=== PATIENT | female | born 1955 | race Caucasian/White ===

== ENCOUNTER 2020-04-10 19:54 | Emergency (ER) | payer MEDICARE, OTHER, SELFPAY ==
--- NOTE | ~2020-04-10 | XR_ITS ---
EXAMINATION: XR abdomen/kub 1V DATE: 04/10/2020 22:00 INDICATION: Kidney stones. Left-sided flank pain. TECHNIQUE: A supine view of the abdomen was obtained. COMPARISON: CT dated 04/10/2020 FINDINGS: Catheter projecting over the left abdomen, pelvis and lower chest likely representing a ventriculoper itoneal shunt. Excreted contrast at the bilateral renal collecting systems with mild left left hydrou reteronephrosis and delayed left nephrogram consistent with obstructing stone at the left ureterovesi cular junction as seen on prior CT. The stone appears to be subtly visible on the plain radiographs b ut is obscured by distal excreted contrast in the bladder as well as some mottled stool within the si gmoid colon. No dilated loops of bowel to suggest obstruction. IMPRESSION: 1. Obstructing stone at the left ureterovesicular junction with mild left hydroureteronephrosis and d elayed left nephrogram. Reviewed, dictated and finalized at location A. IMPRESSION: 1. Obstructing stone at the left ureterovesicular junction with mild left hydro ureteronephrosis and delayed left nephrogram.
--- NOTE | ~2020-04-10 | CT_ITS ---
EXAMINATION: CT abdomen pelvis w con DATE: 04/10/2020 21:14 INDICATION: Left abdominal pain TECHNIQUE: Computed tomography (CT) of the abdomen and pelvis was performed with 100 cc Omnipaque 350 intravenous contrast. Automated exposure control and iterative reconstruction technique were employe d. Exam dose: 171.07 mGy-cm total exam DLP. COMPARISON: 09/21/2014 CT abdomen pelvis FINDINGS: The lung bases are clear. Small sliding hiatal hernia. Normal heart size. No pericardial or pleural effusion. The liver, spleen, pancreas, gallbladder, bile ducts and pancreatic duct are unremarkable. Morphology of the adrenal glands. Distal left ureteral 4 mm calculus with mild left hydroureteronephrosis. There are 2 small nonobstruc ting left renal calculi. No right urinary tract calculus or hydroureteronephrosis. Small lower pole r ight renal cyst. Atherosclerotic calcification of the abdominal aorta, iliac and femoral arteries; no abdominal aortic aneurysm or dissection is evident. No intraperitoneal or retroperitoneal or pelvic mass lesion or ad enopathy or ascites. The urinary bladder, uterus and adnexal areas are unremarkable. There is a prominent amount of fecal with material within the colon. There is some liquid stool in th e right colon. There are fluid distended but nondilated small bowel segments with occasional small nazario wel air-fluid levels. No bowel wall thickening, pneumatosis or intraperitoneal free air. Findings sug gest mild adynamic ileus. No suspicious osteolytic or osteoblastic lesions are noted. IMPRESSION: 4 mm distal left ureteral calculus with mild left hydroureteronephrosis 2 small nonobstructing left kidney stones Small right renal cyst Reviewed, dictated and finalized at [facility]. Reviewed, dictated and finalized at location A. IMPRESSION: 4 mm distal left ureteral calculus with mild left hydroureteroneph rosis 2 small nonobstructing left kidney stones Small right renal cyst
[2020-04-10 20:04] VITALS: BP 159/67; PULSE 69; RESP 18; TEMP 36.7; O2SAT 99
--- NOTE | 2020-04-10 20:10 | ED.ABDPAIN ---
HPI - Abdominal Pain General Chief Complaint: Abdominal Pain Stated Complaint: left flank pain Time Seen by Provider: 04/10/20 19:56 Source: RN notes reviewed History of Present Illness HPI narrative: Patient presents emergency department from home for left-sided abdominal pain. Patient states pain began yesterday. The pain is located in the left lower abdomen and radiates in the left flank. Described as sharp and stabbing. States associated nausea vomiting yesterday but none today. Denies any fevers or chills chest pain, shortness of breath, diarrhea, dysuria or any other symptoms. States she is taken no previous pain medication today. Denies anything making the pain better or worse Related Data Home Medications Medication Instructions Recorded Confirmed atorvastatin 10 mg tablet 10 mg PO DAILY 02/13/20 clonazepam 0.5 mg disintegrating 0.5 mg PO DAILY 02/13/20 tablet lacosamide 200 mg tablet 200 mg PO Q12H 02/13/20 levothyroxine 25 mcg tablet 25 mcg PO DAILY 02/13/20 modafinil 200 mg tablet 200 mg PO QAM 02/13/20 omeprazole 40 mg capsule,delayed 40 mg PO DAILY 02/13/20 release zonisamide 100 mg capsule 100 mg PO BID 02/13/20 Allergies Allergy/AdvReac Type Severity Reaction Status Date / Time No Known Allergies Allergy Unknown Verified 04/10/20 20:09 Review of Systems Review of Systems: Narrative: Gen.: Denies fevers or chills ENT: Denies congestion Respiratory: Denies shortness of breath or cough CV: Denies chest pain or palpitations GI: See HPI denies burning, urgency, frequency or hematuria Musculoskeletal: Denies back pain or muscle pain Neuro: Denies numbness, tingling, weakness or focal weakness Skin: Denies rash Except as documented, all other systems reviewed and negative PMFSH Past Medical History Medical History Acid reflux Brain aneurysm Depression Hyperlipidemia Hypothyroidism Family History Family History (Updated 05/05/16 @ 23:21 by DOCTOR UNKNOWN) Father Patient's father is in good health Sibling Patient's brother is in good health Other Family history of heart disease in male family member before age 55 Social History Social History Smoking status: Current every day smoker Second hand tobacco smoke exposure: No Alcohol intake: never Exam Narrative: Exam Narrative: APPEARANCE: No acute distress, nontoxic, resting in bed HEENT: Normocephalic, atraumatic, OMM RESPIRATORY: No respiratory distress, clear to auscultation bilaterally with no rhonchi wheezing or rales CARDIOVASCULAR: RRR s murmur ABDOMINAL: Soft, nondistended, tender palpation left upper quadrant left lower quadrant, no tenderness in right upper quadrant right lower quadrant, no rebound or guarding MUSCULOSKELETAl: Moves all extremities. No clubbing, cyanosis or edema. NEURO: Awake and alert. Following commands, speech normal, no focal deficits SKIN:: Warm, dry. Normal Color PSYCHIATRIC: Normal affect/mood Course Course Emergency Course: Patient states she is feeling better at this time Discussed with patient results of workup and diagnosis. Discussed need for follow-up with primary care, proper use of medication, and reasons to return to the emergency department. Patient understands and agrees to current treatment plan Vital Signs Vital signs: Vital Signs Temperature 98.1 F 04/10/20 20:04 Pulse Rate 69 04/10/20 20:04 Respiratory Rate 18 04/10/20 20:04 Blood Pressure 159/67 H 04/10/20 20:04 Pulse Oximetry 99 04/10/20 20:04 Temperature 98.1 F 04/10/20 20:04 Pulse Rate 74 04/10/20 21:37 Respiratory Rate 18 04/10/20 21:37 Blood Pressure 155/74 H 04/10/20 21:37 Pulse Oximetry 99 04/10/20 21:37 MDM - Abdominal Pain MDM Narrative Medical decision making narrative: Patient's abdomen is soft without significant pain or signs of surgical abdome
[2020-04-10 20:27] LABS: Basophils Percent Auto 0.3 % (0.2-1.2); Eosinophils Absolute Auto 0.1 K/mm3 (0-0.3); Eosinophils Percent Auto 1.1 % (0-4.4); Hematocrit 39.5 % (37.0-47.0); Hemoglobin 12.9 g/dL (12.0-15.0); Immature Granulocyte Absolute 0.03 K/mm3 (0.00-0.031); Immature Granulocyte Percent A 0.3 % (0-0.5); Lymphocytes Absolute Auto 1.65 K/mm3 (0.9-3.2); Mean Corpuscular HGB Conc 32.7 g/dl (32-36); Mean Corpuscular Hemoglobin 31.2 pg (26-34); Mean Corpuscular Volume 95.4 fl (80-100); Mean Platelet Volume 10.9 fl (7.4-10.4); Monocytes Absolute Auto 0.7 K/mm3 (0.1-0.6); Monocytes Percent Auto 6.1 % (2.6-8.5); Neutrophils Absolute Auto 8.5 K/mm3 (1.3-6.7); Neutrophils Percent Auto 77.2 % (45.5-73.1); Platelet Count Result 261 k/mm3 (150-375); Red Blood Count 4.14 M/mm3 (4.2-5.4); Red Cell Distribution Width 14.6 % (11.5-14.5)
[2020-04-10] MEDS: SODIUM CHLORIDE 0.9% IV 1,000 ML 999 ML IV CONT (20:27)
[2020-04-10 20:29] LABS: Add Urine Microscopic? NO; Appearance Urine Clear (Clear); Bilirubin Urine Negative (Negative); Blood Urine Negative (Negative); Color Urine Yellow (Yellow); Glucose Urine UA Negative (Negative); Ketones Urine Negative (Negative); Leukocyte Esterase Ur Negative LEU/UL (Negative); Nitrate Urine Negative (Negative); Protein Urine Negative (Negative); Specific Grav Ur 1.016 (1.001-1.035); Urobilinogen Urine Negative mg/dL (<2.0)
[2020-04-10 20:36] LABS: INR 0.9; Prothrombin Time 12.2 Seconds (11.1-14.7)
[2020-04-10 20:37] LABS: Partial Thromboplastin Time 35.3 SECONDS (22.3-36.8)
[2020-04-10 20:39] LABS: Alanine Aminotransferase 13 U/L (4-35); Albumin Level 4.4 g/dL (3.5-5.1); Alkaline Phosphatase 97 U/L (38-126); Aspartate Amino Transferase 25 U/L (14-36); Bilirubin,Total 0.3 mg/dL (0.2-1.3); Blood Urea Nitrogen 16 mg/dL (7-17); Calcium 8.6 mg/dL (8.4-10.2); Carbon Dioxide 24 mmol/L (22-30); Chloride 106 mmol/L (98-107); Estimated CRCL calculation 30 ml/min; Estimated Glomerular Filt Rate 45; Glucose 110 mg/dL (65-105); Lipase 100 U/L (23-300); Potassium 3.5 mmol/L (3.4-5.0); Sodium 138 mmol/L (137-145)
[2020-04-10 21:37] VITALS: BP 155/74; PULSE 74; RESP 18; O2SAT 99
[2020-04-10] MEDS: TAMSULOSIN HCL 0.4 MG CAPSULE PO (21:52)
--- NOTE | 2020-04-10 21:53 | PC.NURSE ---
xray in room at this time.
== END 2020-04-10 22:30 | disposition home or self-care (01) ==
PROVIDERS: Emergency Provider Emergency Medicine; PCP Nurse Practitioner Family
DX: N13.2 Hydronephrosis with renal and ureteral calculous obstruction (principal); K21.9 Gastro-esophageal reflux disease without esophagitis; E78.5 Hyperlipidemia, unspecified; E03.9 Hypothyroidism, unspecified; F17.200 Nicotine dependence, unspecified, uncomplicated; N28.1 Cyst of kidney, acquired
CPT/HCPCS: 36415; 74018; 74177; 80053; 81003; 83690; 85025; 85610; 85730; 96361; 96374; 99284; A9270; J0131; J7030; Q9967

== ENCOUNTER 2020-04-13 10:05 | Outpatient (CLI) | payer MEDICARE, OTHER, SELFPAY ==
--- NOTE | ~2020-04-13 | MM_ITS ---
EXAMINATION: MM screening [facility] BI w [facility] HISTORY: Screening mammogram TECHNIQUE: Craniocaudal and mediolateral oblique 3-D tomosynthesis images were obtained and synthetic 2-D images were generated. CAD analysis was submitted and interpreted. COMPARISON: 03/20/2019, 03/16/2017, 03/01/2017, 02/08/2016 BREAST PARENCHYMAL COMPOSITION: There are scattered areas of fibroglandular density. FINDINGS: There is no evidence of suspicious mass, calcification, or architectural distortion to sugg est malignancy in either breast. There has been no suspicious interval change. IMPRESSION: 1. No mammographic evidence of malignancy. 2. Recommend routine screening mammography in one year. BI-RADS Category 1: Negative Reviewed, dictated and finalized at location A.
== END 2020-04-13 10:06 | disposition home or self-care (01) ==
PROVIDERS: PCP Nurse Practitioner Family; Visit Provider Nurse Practitioner Family
DX: Z12.31 Encounter for screening mammogram for malignant neoplasm of breast (principal)
CPT/HCPCS: 77063; 77067

== ENCOUNTER 2020-04-13 12:42 | Outpatient (CLI) | payer MEDICARE, OTHER, SELFPAY ==
--- NOTE | ~2020-04-13 | XR_ITS ---
EXAMINATION: XR abdomen/kub 1V INDICATION: Left ureteral stone TECHNIQUE: Supine views of the abdomen were obtained on 2 radiographs. COMPARISON: 04/10/2020 FINDINGS: The previously described left pelvic calcification, possibly reflecting a left ureterovesic ular junction stone, is not definitely identified. There are phleboliths of the right pelvis. Ventric uloperitoneal shunt catheter tubing is seen. A large volume of colonic stool is present. IMPRESSION: 1. Previously questioned left ureterovesicular junction stone not definitely identified. Reviewed, dictated and finalized at location A. IMPRESSION: 1. Previously questioned left ureterovesicular junction stone not definitely id entified.
== END 2020-04-13 12:43 | disposition home or self-care (01) ==
PROVIDERS: PCP Nurse Practitioner Family; Visit Provider Urology
DX: N20.1 Calculus of ureter (principal)
CPT/HCPCS: 74018; 77063; 77067

== ENCOUNTER 2020-08-02 14:06 | Outpatient (CLI) | payer MEDICARE, OTHER, SELFPAY ==
--- NOTE | ~2020-08-02 | CT_ITS ---
EXAMINATION: CT abdomen pelvis wo con DATE: 08/02/2020 14:25 INDICATION: Left ureteral stone. Left abdominal pain. Nausea and vomiting. TECHNIQUE: Computed tomography (CT) of the abdomen and pelvis was performed without intravenous contr ast. Automated exposure control and iterative reconstruction technique were employed. Exam dose: 161 .29 mGy-cm total exam DLP. COMPARISON: 04/13/2020 KUB 04/[address] abdomen pelvis FINDINGS: Discoid atelectasis or scarring at the middle lobe. No infiltrate or consolidation or lung bases. 6 There is a catheter along the left anterior abdominal wall extending into the peritoneal cavity, term inating in the right pelvic region. The liver, gallbladder spleen, pancreas and adrenal glands are unremarkable. There are occasional hep atic and splenic calcified granulomas. No bile duct or pancreatic duct dilatation. Normal morphology of the adrenal glands. 3 mm distal left ureteral calculus with moderate left hydroureteronephrosis. There is a pinpoint nonobstructing left renal calculus. No right urinary tract calculus or right-side d hydroureteronephrosis. The urinary bladder, uterus and adnexal areas are unremarkable. There is atherosclerotic calcification of the abdominal aorta but no aneurysm. No intraperitoneal or retroperitoneal or pelvic mass lesion or adenopathy is evident. There is a small amount of free fluid in the dependent pelvis. Small sliding hiatal hernia. There are some fluid levels in the right colon which may indicate enteritis. No bowel obstruction, nazario wel wall thickening, pneumatosis or intraperitoneal free air is evident. No suspicious osteolytic or osteoblastic lesions are noted. IMPRESSION: Distal 4 mm left ureteral calculus with moderate left hydroureteronephrosis Pinpoint nonobstructing left renal calculus Small sliding hiatal hernia Reviewed, dictated and finalized at [facility]. Reviewed, dictated and finalized at location A. IMPRESSION: Distal 4 mm left ureteral calculus with moderate left hydrouretero nephrosis Pinpoint nonobstructing left renal calculus Small sliding hiatal hernia
== END 2020-08-02 14:07 | disposition home or self-care (01) ==
PROVIDERS: PCP Nurse Practitioner Family; Visit Provider Urology
DX: N20.1 Calculus of ureter (principal); N13.30 Unspecified hydronephrosis; N20.0 Calculus of kidney; K44.9 Diaphragmatic hernia without obstruction or gangrene
CPT/HCPCS: 74176

== ENCOUNTER 2020-08-05 11:31 | Outpatient (CLI) | payer MEDICARE, OTHER, SELFPAY ==
--- NOTE | ~2020-08-05 | XR_ITS ---
XR abdomen/kub 1V DATE: 08/05/2020 12:09 INDICATION: Follow-up of left ureteral stone TECHNIQUE: AP projection, 2 views COMPARISON: 08/[address] abdomen pelvis 04/13/2020 KUB FINDINGS: Left ventricular peritoneal shunt catheter is again noted. There is a prominent amount of feces in the colon. No bowel obstruction. No visceromegaly is detect ed. No apparent urinary tract calcified calculus is detected. IMPRESSION: Ventriculoperitoneal shunt No calcified urinary tract calculus is detected Reviewed, dictated and finalized at [facility]. Reviewed, dictated and finalized at location A.
== END 2020-08-05 11:32 | disposition home or self-care (01) ==
LOC: ANHIMG 11:40
PROVIDERS: PCP Nurse Practitioner Family; Visit Provider Urology
DX: N20.1 Calculus of ureter (principal)
CPT/HCPCS: 74018

== ENCOUNTER 2020-10-04 16:50 | Emergency (ER) | payer MEDICARE, OTHER, SELFPAY ==
[2020-10-04] VITALS (8 sets, daily range): BP systolic 124–149; BP diastolic 71–95; PULSE 60–69; RESP 20–23; TEMP 36.6; O2SAT 98–100
--- NOTE | ~2020-10-04 | CT_ITS ---
EXAMINATION: CT abdomen pelvis w con INDICATION: Left-sided abdominal pain TECHNIQUE: Computed tomographic images of the abdomen and pelvis were obtained after the administrati on of 100 cc of Omnipaque 350 intravenous contrast. The dose-length product (DLP) was 161.68 mGy-cm. Automated exposure control and iterative reconstruction technique were employed. COMPARISON: 08/02/2020 FINDINGS: The lung bases are clear. The heart size is normal. Punctate calcifications in an otherwise normal spleen likely represent healed granulomatous disease. The liver, pancreas, gallbladder, and a drenal glands are normal. The kidneys are unremarkable. There is calcified atherosclerosis of the aor ta and many of the other arteries. No pathologically enlarged abdominal or pelvic lymph nodes are sonny ntified. There is no free intraperitoneal gas or evidence of bowel obstruction. A large volume of col onic stool is present. A ventriculoperitoneal shunt catheter courses through the left anterior abdome n and ends with its tip in the right pelvis. There is mild lumbar spondylosis. IMPRESSION: 1. No CT correlate for the patient's symptoms. Reviewed, dictated and finalized at location A. INE STUFFER
--- NOTE | 2020-10-04 17:21 | ED.ABDPAIN ---
HPI - Abdominal Pain General Chief Complaint: Abdominal Pain Stated Complaint: left side pain Time Seen by Provider: 10/04/20 17:06 Source: patient Mode of arrival: ambulatory Limitations: no limitations History of Present Illness HPI narrative: This is a 65-year-old female that presents the emergency department for left-sided abdominal pain x3 days. Reports the pain is intermittent in nature. Describes it as sharp. Reports she does have history of kidney stones. Reports her primary told her she had blood in the urine. Denies fever, chest pain, shortness of breath, nausea, vomiting, dysuria. Related Data Home Medications Medication Instructions Recorded Confirmed atorvastatin 10/04/20 10/04/20 ibandronate mg PO 10/04/20 lacosamide [Vimpat] 10/04/20 levothyroxine 10/04/20 perampanel [Fycompa] mg 10/04/20 sertraline mg 10/04/20 zonisamide 10/04/20 Allergies Allergy/AdvReac Type Severity Reaction Status Date / Time No Known Allergies Allergy Unknown Verified 10/04/20 17:06 Review of Systems Review of Systems: Narrative: CONSTITUTIONAL: Denies fever CARDIOVASCULAR: Denies chest pain RESPIRATORY: Denies dyspnea. GASTROINTESTINAL: Reports abdominal pain. Denies nausea, vomiting GENITOURINARY: Reports hematuria. Denies dysuria All systems reviewed & are unremarkable except as noted in HPI and below PMFSH Past Medical History Medical History (Updated 10/04/20 @ 19:24 by Genny Espino PA-C) Acid reflux Brain aneurysm Depression Hyperlipidemia Hypothyroidism Surgical History Surgical History History of adenoidectomy Hx of tonsillectomy Family History Family History (Updated 05/05/16 @ 23:21 by DOCTOR UNKNOWN) Father Patient's father is in good health Sibling Patient's brother is in good health Other Family history of heart disease in male family member before age 55 Social History Social History Smoking status: Current every day smoker Second hand tobacco smoke exposure: No Alcohol intake: never Gender identity (if verbalized by the patient): Female Exam Narrative: Exam Narrative: GENERAL: Well-appearing, well-nourished, and in no acute distress. HEAD: Normocephalic, atraumatic. EYES: EOMI. CHEST: Clear to auscultation. No respiratory distress. No wheezes rales or rhonchi HEART: Regular rate and rhythm. No murmur heard. Normal peripheral pulses. ABDOMEN: Soft, nondistended, normal active bowel sounds. Tender to palpation throughout the left side of the abdomen, without guarding. No CVA tenderness EXTREMITIES: Normal range of motion. No edema. SKIN: Warm, dry, no rash. NEURO: No focal deficits. Alert and oriented x3. PSYCH: Normal mood and affect Course Vital Signs Vital signs: Vital Signs Temperature 97.8 F 10/04/20 17:02 Pulse Rate 69 10/04/20 17:02 Respiratory Rate 20 10/04/20 17:02 Blood Pressure 147/74 H 10/04/20 17:02 Pulse Oximetry 98 10/04/20 17:02 Temperature 97.8 F 10/04/20 17:02 Pulse Rate 64 10/04/20 17:33 Respiratory Rate 21 H 10/04/20 17:33 Blood Pressure 149/75 H 10/04/20 17:33 Pulse Oximetry 98 10/04/20 17:33 MDM - Abdominal Pain MDM Narrative Medical decision making narrative: Patient presents the emergency department for left-sided abdominal pain intermittent over the last couple of days. She is afebrile and nontoxic-appearing. Vitals are stable. CBC is without concerning findings. Metabolic panel with mild hypokalemia. Patient given dose potassium in the ED. UA without evidence of infection. CT scan abdomen and pelvis is without acute findings. Does show a large volume of colonic stool. Suspect patient symptoms may be due to some constipation. Instructed to continue her stool softeners and take laxative as needed. She is to follow-up with primary care doctor. She was given warnings t
[2020-10-04 17:23] LABS: Basophils Percent Auto 0.5 % (0.2-1.2); Eosinophils Absolute Auto 0.1 K/mm3 (0-0.3); Eosinophils Percent Auto 1.6 % (0-4.4); Hemoglobin 13.7 g/dL (12.0-15.0); Immature Granulocyte Absolute 0.01 K/mm3 (0.00-0.031); Immature Granulocyte Percent A 0.1 % (0-0.5); Lymphocytes Absolute Auto 1.75 K/mm3 (0.9-3.2); Lymphocytes Percent Auto 23.5 % (18.3-44.2); Mean Corpuscular HGB Conc 32.6 g/dl (32-36); Mean Corpuscular Hemoglobin 31.8 pg (26-34); Mean Corpuscular Volume 97.4 fl (80-100); Mean Platelet Volume 10.4 fl (7.4-10.4); Monocytes Absolute Auto 0.6 K/mm3 (0.1-0.6); Monocytes Percent Auto 8.1 % (2.6-8.5); Neutrophils Absolute Auto 4.9 K/mm3 (1.3-6.7); Neutrophils Percent Auto 66.2 % (45.5-73.1); Platelet Count Result 263 k/mm3 (150-375); Red Blood Count 4.31 M/mm3 (4.2-5.4); Red Cell Distribution Width 13.2 % (11.5-14.5); White Blood Count 7.4 K/mm3 (4.5-10.0)
[2020-10-04] MEDS: SODIUM CHLORIDE 0.9% IV 1,000 ML 999 ML IV CONT (17:34)
[2020-10-04 17:54] LABS: Alanine Aminotransferase 15 U/L (4-35); Albumin Level 4.2 g/dL (3.5-5.1); Alkaline Phosphatase 77 U/L (38-126); Anion Gap 8 mmol/L (8-16); Aspartate Amino Transferase 25 U/L (14-36); Bilirubin,Total 0.4 mg/dL (0.2-1.3); Blood Urea Nitrogen 18 mg/dL (7-17); Calcium 9.2 mg/dL (8.4-10.2); Carbon Dioxide 26 mmol/L (22-30); Chloride 108 mmol/L (98-107); Estimated CRCL calculation 39 ml/min; Estimated Glomerular Filt Rate > 60; Glucose 112 mg/dL (65-105); Lipase 140 U/L (23-300); Sodium 142 mmol/L (137-145)
[2020-10-04 18:17] LABS: Add Urine Microscopic? YES; Amorphous Sediment Urine Few; Appearance Urine Cloudy (Clear); Bacteria Urine Trace /hpf; Bilirubin Urine Negative (Negative); Blood Urine Negative (Negative); Color Urine Yellow (Yellow); Glucose Urine UA Negative (Negative); Ketones Urine Negative (Negative); Leukocyte Esterase Ur Negative LEU/UL (Negative); Nitrate Urine Negative (Negative); Protein Urine Negative (Negative); RBC Urine 0-2 /hpf (0-2); Specific Grav Ur 1.019 (1.001-1.035); Squamous Epithelial Cell Urine Rare /hpf (Few); WBC Urine 0-3 /hpf
[2020-10-04 18:48] LABS: Potassium 3.3 mmol/L (3.4-5.0)
[2020-10-04] MEDS: POTASSIUM CHLORIDE 20 MEQ PACKET (FOR LIQUID) 40 MEQ PO (19:22)
== END 2020-10-04 19:35 | disposition home or self-care (01) ==
PROVIDERS: Physician Assistant; Emergency Provider Emergency Medicine; PCP Nurse Practitioner Family
DX: K21.9 Gastro-esophageal reflux disease without esophagitis (principal); E87.6 Hypokalemia; E78.5 Hyperlipidemia, unspecified; E03.9 Hypothyroidism, unspecified; F32.9 Major depressive disorder, single episode, unspecified; F17.200 Nicotine dependence, unspecified, uncomplicated; K59.00 Constipation, unspecified
CPT/HCPCS: 36415; 74177; 80053; 81001; 83690; 85025; 96361; 96374; 99284; A9270; J0131; J7030; Q9967

== ENCOUNTER → 2021-03-02 11:27 | Outpatient (CLI) | payer MEDICARE, OTHER, SELFPAY ==
--- NOTE | ~2021-03-02 | XR_ITS ---
XR abdomen/kub 1V 03/02/2021 11:55 Indication: Kidney stones Procedure: KUB Comparison: Comparison to multiple prior studies sequentially, with oldest reviewed study dated 03/18. Findings: Moderate colonic fecal loading. There is a left ventriculoperitoneal shunt. Nonobstructive bowel gas pattern. Lung bases unremarkable. No acute osseous abnormality. Impression: 1: Nonobstructive bowel gas pattern with large amount of retained fecal material throughout the colon . Reviewed, dictated and finalized at location A. Impression: 1: Nonobstructive bowel gas pattern with large amount of retained fecal materia l throughout the colon.
== END ==
PROVIDERS: Visit Provider Urology
DX: Z87.442 Personal history of urinary calculi (principal)
CPT/HCPCS: 74018

== ENCOUNTER 2021-04-28 09:40 | Emergency (ER) | payer MEDICARE, OTHER, SELFPAY ==
--- NOTE | ~2021-04-28 | XR_ITS ---
EXAMINATION: XR ankle RT min 3V INDICATION: Right ankle pain TECHNIQUE: Four views of the right ankle are obtained. COMPARISON: None available FINDINGS: The bones are osteopenic which limits the sensitivity for fracture. There is a triangular h eterotopic ossification projecting between the lateral malleolus and the talus. There is mild ankle s oft tissue swelling. Bone alignment is normal. IMPRESSION: 1. Heterotopic ossification projecting between the lateral malleolus and talus which could reflect av ulsion injury although degree of ankle soft tissue swelling is less than would be expected for acute fracture. Reviewed, dictated and finalized at location B. IMPRESSION: 1. Heterotopic ossification projecting between the lateral malleolus and talus which could reflect avulsion injury although degree of ankle soft tissue swelli ng is less than would be expected for acute fracture.
[2021-04-28 09:59] VITALS: BP 105/66; PULSE 69; RESP 16; TEMP 36.7; O2SAT 98
--- NOTE | 2021-04-28 10:58 | ED.LOWEXIN ---
HPI - Extremity Injury (Lower) General Chief Complaint: Extremity Injury, Lower Stated Complaint: fell right foot swelling/pain Time Seen by Provider: 04/28/21 10:58 Source: patient Mode of arrival: ambulatory Limitations: no limitations History of Present Illness HPI Narrative: Tabatha Espinoza 66-year-old female [facility] fall yesterday right ankle pain with lateral edema -still on deck yesterday and then fell again later in the evening states that the pain initially was not bad but she sits with her legs under her buttocks, and states her leg was asleep. Later in the evening the swelling began and it began to throb she had difficulty sleeping last night. States her pain is now an 8 out of 10 after her ankle was manipulated during an x-ray Related Data Home Medications Medication Instructions Recorded Confirmed atorvastatin 10/04/20 10/04/20 ibandronate mg PO 10/04/20 lacosamide [Vimpat] 10/04/20 levothyroxine 10/04/20 perampanel [Fycompa] mg 10/04/20 sertraline mg 10/04/20 zonisamide 10/04/20 Acid Reflux Med. 04/28/21 Align 04/28/21 Caltrate 600 04/28/21 Colace 04/28/21 Vitamin B12 04/28/21 aspirin [Adult Aspirin] PO 04/28/21 Allergies Allergy/AdvReac Type Severity Reaction Status Date / Time No Known Allergies Allergy Unknown Verified 10/04/20 17:06 Review of Systems Review of Systems: Narrative: CONSTITUTIONAL: Denies fever, chills, sweats. EYES: Denies visual changes, redness, discharge. ENT: Denies rhinorrhea, congestion, sore throat, otalgia. CARDIOVASCULAR: Denies chest pain, palpitations, edema. RESPIRATORY: Denies dyspnea, wheezing, cough GASTROINTESTINAL: Denies abdominal pain, nausea, vomiting, diarrhea. GENITOURINARY: Denies dysuria, hematuria, abnormal discharge SKIN: Denies rash or itching. NEUROLOGIC: Denies numbness, or focal weakness. PSYCHIATRIC: Denies anxiety or depression. Right ankle lateral swelling PMFSH Past Medical History Medical History (Updated 04/28/21 @ 11:23 by Courtney Duran CNP) Acid reflux Brain aneurysm Depression Hyperlipidemia Hypothyroidism Surgical History Surgical History History of adenoidectomy Hx of tonsillectomy Family History Family History Father Patient's father is in good health Sibling Patient's brother is in good health Other Family history of heart disease in male family member before age 55 Social History Social History Smoking status: Current every day smoker Second hand tobacco smoke exposure: No Alcohol intake: never Gender identity (if verbalized by the patient): Female Comments At time of signature, I agree with nursing past medical, surgical, social and family history. There is no relevant family history pertinent to the presenting complaint. Exam Narrative: Exam Narrative: GENERAL: This is a well-nourished, well-developed patient, in mild distress. HEAD: normocephalic, atraumatic. EYES: Sclera clear/white. Vision is grossly intact. EARS: External ears normal, . Hearing grossly intact. NOSE: External nose normal without nasal discharge, nares without redness, no rhinorrhea. THROAT: Mucous membranes moist, NECK: Neck supple, CARDIOVASCULAR: Regular rate and rhythm without murmurs, gallops, or rubs. RESPIRATORY: Clear to auscultation. Breath sounds equal bilaterally. No wheezes, rales, or rhonchi. GASTROINTESTINAL: Abdomen soft, SKIN: warm, intact with no suspicious lesions or rash, good texture and turgor. NEURO: awake, alert, and oriented to person, place and time. There were no obvious focal neurologic abnormalities. Steady gait EXTREMITIES: Normal range of motion on L. Right lateral ankle pain 2+ pedal pulse, right able to move foot slightly but pain with any kind of lateral movement BACK: Nontender withou
--- NOTE | 2021-04-28 11:01 | PC.NURSE ---
investment sales assistant in with pt and spouse.
== END 2021-04-28 11:28 | disposition home or self-care (01) ==
PROVIDERS: Emergency Provider Nurse Practitioner; PCP Family Medicine
DX: M25.571 Pain in right ankle and joints of right foot (principal); K21.9 Gastro-esophageal reflux disease without esophagitis; E78.5 Hyperlipidemia, unspecified; E03.9 Hypothyroidism, unspecified; F17.200 Nicotine dependence, unspecified, uncomplicated; F32.9 Major depressive disorder, single episode, unspecified
CPT/HCPCS: 73610; 99213; G0463

== ENCOUNTER → 2021-06-16 10:13 | Outpatient (CLI) | payer MEDICARE, OTHER, SELFPAY ==
--- NOTE | ~2021-06-16 | DEXA_ITS ---
Bone Density Report Name: Tabatha Espinoza Age: 66 Sex: Female Ethnicity: White Date of : 1955 Indication: postmenopausal osteoporosis; monitoring treatment; parental hip fracture; seizure disorder; Referring Provider: Feliciano Elena Study: Bone densitometry was performed. Exam Date: June 16, 2021 Accession number: [id number] Bone Density: Region BMD T-score Z-score Classification AP Spine (L1-L4) 0.800 -2.2 -0.5 Osteopenia Femoral Neck (Left) 0.491 -3.2 -1.8 Osteoporosis Total Hip (Left) 0.639 -2.5 -1.3 Osteoporosis Femoral Neck (Right) 0.510 -3.1 -1.6 Osteoporosis Total Hip (Right) 0.644 -2.4 -1.3 Osteopenia Total Hip Mean 0.642 -2.5 -1.3 Osteopenia World Health Organization criteria for BMD impression classify patients as: Normal (T-score at or above -1.0), Osteopenia (T-score between -1.0 and -2.5), or Osteoporosis (T-score at or below -2.5). 10-year Fracture Risk: FRAX not reported because: Some T-score for Spine Total or Hip Total or Femoral Neck at or below -2.5 Treated for osteoporosis Previous Exams: Region Exam Age BMD T-score BMD Change BMD Change Date g/cm2 vs Baseline vs Previous AP Spine(L1-L4) 06/16/2021 66 0.800 -2.2 -0.138 0.025* 03/20/2019 64 0.775 -2.5 -0.163 -0.013 01/30/2017 61 0.788 -2.4 -0.150 0.017 12/15/2014 59 0.771 -2.5 -0.167 -0.023 10/24/2012 57 0.793 -2.3 -0.145 -0.070* 09/05/2010 55 0.863 -1.7 -0.075 -0.050* 09/03/2009 54 0.913 -1.2 -0.025 0.022 09/02/2008 53 0.891 -1.4 -0.047 -0.001 05/27/2007 52 0.892 -1.4 -0.046 -0.046 05/16/2004 49 0.938 -1.0 Total Hip(Left) 06/16/2021 66 0.639 -2.5 -0.216 -0.033* 03/20/2019 64 0.672 -2.2 -0.183 -0.133 01/30/2017 61 0.805 -1.1 -0.050 0.028* 12/15/2014 59 0.776 -1.4 -0.079 -0.034* 10/24/2012 57 0.810 -1.1 -0.045 -0.013 09/05/2010 55 0.823 -1.0 -0.032 -0.051 09/03/2009 54 0.874 -0.6 0.019 0.042 09/02/2008 53 0.832 -0.9 -0.023 -0.002 05/27/2007 52 0.834 -0.9 -0.021 -0.021 05/16/2004 49 0.855 -0.7 Total Hip(Right) 06/16/2021 66 0.644 -2.4 -0.175 -0.013 03/20/2019 64 0.657 -2.3 -0.162 -0.057* 01/30/2017 61 0.714 -1.9 -0.105 -0.013 12/15/2014 59 0.727 -1.8 -0.092 -0.109* 10/24/2012
--- NOTE | ~2021-06-16 | MM_ITS ---
EXAMINATION: MM screening [facility] BI w russ HISTORY: Screening mammogram TECHNIQUE: Craniocaudal and mediolateral oblique 3-D tomosynthesis images were obtained and synthetic 2-D images were generated. CAD analysis was submitted and interpreted. COMPARISON: 04/13/2020, 03/20/2019 bilateral digital screening mammogram examinations BREAST PARENCHYMAL COMPOSITION: There are scattered areas of fibroglandular density. FINDINGS: There is no evidence of suspicious mass, calcification, or architectural distortion to sugg est malignancy in either breast. There has been no suspicious interval change. IMPRESSION: 1. No mammographic evidence of malignancy. 2. Recommend routine screening mammography in one year. BI-RADS Category 1: Negative Reviewed, dictated and finalized at location A.
== END ==
PROVIDERS: Visit Provider Obstetrics & Gynecology
DX: Z12.31 Encounter for screening mammogram for malignant neoplasm of breast (principal); M85.88 Other specified disorders of bone density and structure, other site; M81.0 Age-related osteoporosis without current pathological fracture; M85.851 Other specified disorders of bone density and structure, right thigh; M85.852 Other specified disorders of bone density and structure, left thigh
CPT/HCPCS: 77063; 77067; 77080

== ENCOUNTER → 2022-05-17 12:15 | Outpatient (CLI) | payer MEDICARE, OTHER, SELFPAY ==
--- NOTE | ~2022-05-17 | XR_ITS ---
EXAM: XR abdomen/kub 1V DATE: 05/17/2022 12:31 HISTORY: History of kidney stones . COMPARISON: 03/02/2021. CT abdomen pelvis 09/26/2020 FINDINGS: Intact left-sided shunt tubing terminating in the right lower quadrant. Clear lung bases. N ormal bowel gas pattern. No organomegaly. Pelvic phleboliths. Regional bones and soft tissues normal for age. IMPRESSION: No radiographic evidence of urolithiasis. Reviewed, dictated and finalized at location K.
== END ==
PROVIDERS: PCP Urology; Visit Provider Urology
DX: Z87.442 Personal history of urinary calculi (principal)
CPT/HCPCS: 74018

== ENCOUNTER → 2022-05-23 10:55 | Outpatient (CLI) | payer MEDICARE, OTHER, SELFPAY ==
--- NOTE | ~2022-05-23 | US_ITS ---
US renal BI 05/23/2022 11:31 Procedure: Realtime transabdominal ultrasound of the kidneys and bladder. Indication: Abnormal renal function Comparison: 01/26/2050 Findings: Renal echotexture is normal bilaterally without hydronephrosis, contour deforming mass or r enal calculus. There is mild right hydronephrosis. The right kidney measures 11.4 cm and left kidney measures 9.5 cm. Bladder within normal limits. Impression: 1: Mild right hydronephrosis. Reviewed, dictated and finalized at location B. Impression: 1: Mild right hydronephrosis.
== END ==
PROVIDERS: PCP Family Medicine; Visit Provider Internal Medicine Nephrology
DX: R79.89 Other specified abnormal findings of blood chemistry (principal); R94.4 Abnormal results of kidney function studies; N20.0 Calculus of kidney; N13.30 Unspecified hydronephrosis
CPT/HCPCS: 76775

== ENCOUNTER 2022-06-14 12:36 | Outpatient (CLI) | payer MEDICARE, OTHER, SELFPAY ==
--- NOTE | ~2022-06-14 | NM_ITS ---
EXAMINATION: NELDA craven renal scan DATE: 06/14/2022 14:30 INDICATION: Hydronephrosis TECHNIQUE: 7.585 mCi Tc-99m MAG3 was administered IV. 40 mg furosemide was administered IV immediate ly afterward. The patient was scanned in the upright position. A posterior abdominal radionuclide ang iogram was obtained. A subsequent time course of static images of the kidneys, ureters, and bladder w as obtained. COMPARISON: None FINDINGS: The posterior abdominal radionuclide angiogram and sequential static images show normal size, positio n, and morphology of the kidneys. Peak renal parenchymal uptake was 3.5 min in left kidney and 3.5 mi n in right kidney (normal peak 3-5 minutes). The relative early renal uptake was 51% on the left and 49% on the right (<40% is abnormal). No abnormalities of the ureters or bladder are seen. T1/2 for clearance of activity from the left kidney and proximal collecting system was 7 minutes. T1/2 for clearance of activity from the right kidney and proximal collecting system was 17 minutes. Notes on interpretation: T1/2 <10 minutes is normal, 10-15 minutes is low grade obstruction of questi onable clinical significance, 15-20 minutes is partial obstruction that is likely clinically signific ant, >20 minutes is high grade obstruction. Note that false positives may be seen with supine positio ahsan, dehydration, severely dilated nonobstructed kidney, atonic collecting system, poor renal functi on, and chronic furosemide use. IMPRESSION: 1. Symmetric kidney function. 2. Moderately delayed activity clearance from the right kidney consistent with likely clinically sig nificant partial obstruction. Reviewed, dictated and finalized at location A. IMPRESSION: 1. Symmetric kidney function. 2. Moderately delayed activity clearance from the right kidney consistent with likely clinically significant partial obstruction.
== END 2022-06-14 12:37 | disposition home or self-care (01) ==
PROVIDERS: PCP Family Medicine; Visit Provider Urology
DX: N13.39 Other hydronephrosis (principal)
CPT/HCPCS: 78708; A9562

== ENCOUNTER 2022-07-05 09:25 | Outpatient (CLI) | payer MEDICARE, OTHER, SELFPAY ==
--- NOTE | 2022-07-05 09:34 | ECG_ITS ---
Measurements Intervals Prospect Rate: 70 P: 76 ME: 161 QRS: 70 QRSD: 77 T: 73 QT: 367 QTc: 396 Interpretive Statements SINUS RHYTHM POSSIBLE RIGHT ATRIAL ENLARGEMENT BASELINE ARTIFACT- I, II, III, AVR, AVL, AVF, V1-V6 BORDERLINE ECG NO PREVIOUS ECG AVAILABLE FOR COMPARISON Electronically Signed On 07-05-2022 11:29:02 CDT by Carlo Anderson D.O.
== END 2022-07-05 09:26 | disposition home or self-care (01) ==
LOC: ANHSURGERY 09:32
PROVIDERS: PCP Family Medicine; Visit Provider Urology
DX: Z01.810 Encounter for preprocedural cardiovascular examination (principal); E78.00 Pure hypercholesterolemia, unspecified
CPT/HCPCS: 93005

== ENCOUNTER 2022-07-06 00:28 | Day surgery (SDC) | payer MEDICARE, OTHER, SELFPAY ==
--- NOTE | 2022-07-03 07:54 | PM.HPGS ---
History of Present Illness History of Present Illness Consent: Risks, benefits, and alternatives have been discussed and questions answered. Patient agrees to proceed with procedure. Chief complaint: right hydronephrosis Narrative: Tabatha Espinoza is a 67 year old female with a known history of urolithiasis who was recently found to have a slight rise in her serum creatinine. Renal ultrasonography showed scant right hydronephrosis. Diuretic renogram fee shows borderline obstruction to the right ureter/collecting system. She is having no significant pain or hematuria and on imaging studies there has been no identifiable urolithiasis. After discussion of options she has elected to proceed with cystoscopy with right retrograde pyelography, right ureteroscopy and possible right ureteral stent placement. She is aware of the risk including, but not limited to, ureteral injury, hematuria and the affects of having an indwelling stent. Review of Systems Cardiovascular: Cardiovascular: Denies chest pain, Denies lightheadedness, Denies palpitations and Denies dyspnea Respiratory: Respiratory: Denies dyspnea Gastrointestinal: Gastrointestinal: Denies diarrhea, Denies nausea and Denies vomiting Genitourinary: Genitourinary: Denies hematuria and Denies dysuria Endocrine: Endocrine: Denies palpitations FORMERLY [facility] Past Medical History Medical History (Updated 07/03/22 @ 07:56 by Eldon Madden MD) Acid reflux Brain aneurysm Depression Hyperlipidemia Hypothyroidism Surgical History Surgical History History of adenoidectomy Hx of tonsillectomy Family History Family History Father Patient's father is in good health Sibling Patient's brother is in good health Other Family history of heart disease in male family member before age 55 Social History Social History Smoking status: Current every day smoker Second hand tobacco smoke exposure: No Alcohol intake: never Gender identity (if verbalized by the patient): Female Meds Home Medications and Allergies Home Medications Medication Instructions Recorded Confirmed Type atorvastatin 10 mg tablet 10/04/20 10/04/20 History ibandronate 150 mg tablet mg PO 10/04/20 History lacosamide 200 mg tablet (Vimpat) 10/04/20 History levothyroxine 25 mcg tablet 10/04/20 History perampanel 6 mg tablet (Fycompa) mg 10/04/20 History sertraline 50 mg tablet mg 10/04/20 History zonisamide 100 mg capsule 10/04/20 History Acid Reflux Med. 04/28/21 History Align 04/28/21 History Caltrate 600 04/28/21 History Colace 04/28/21 History Vitamin B12 04/28/21 History aspirin 81 mg tablet PO 04/28/21 History Allergies Allergy/AdvReac Type Severity Reaction Status Date / Time No Known Allergies Allergy Unknown Verified 10/04/20 17:06 Exam Const: General: no acute distress Resp: Effort & Inspection: normal respiratory effort GI: Inspection: non-distended GI Palp: No abdominal tenderness and No Guarding due to palpation present (GI) Auscultation: normal bowel sounds Assessment and Plan Assessment and plan (1) Hydronephrosis, right: Code(s): N13.30 - Unspecified hydronephrosis Status: Acute Assessment and Plan: cystoscopy, right retrograde pyelography, right ureteroscopy with possible right ureteral stent placement
--- NOTE | 2022-07-04 08:58 | PC.NURSE ---
PRE-OP INSTRUCTIONS, PLEASE READ CAREFULLY Report to the Outpatient Waiting Room, entrance under the green pavilion located off [facility], at time _1215_ on date _07/06/22_. OR Time: _2:15 PM_. Time changes happen often and if your time is changed the preop area will call you the afternoon before. - You and your visitor will be asked to self-screen and do not enter if you have any COVID symptoms. - Only one visitor and NO children visitors are allowed at this time. - The patient visitor is requested to leave or wait in car when not with patient due to restrictions. - A mask is required within the hospital. Patients may have clear liquids (water, carbonated beverages, clear teas, apple juice) until 3 hours prior to surgery (1115 AM) with a maximum of 20 ounces. - No food from midnight until time of surgery Take the following medications with a SIP of water the morning of surgery: _VIMPAT, LEVOTHYROXINE, ZONISAMIDE_ Medications to discontinue per ANESTHESIA - _ALIGN OF TODAY, Date to take last dose 07/04/22_ Please no make-up, nail chinese, hairspray, perfume, deodorant, or body powder the day of surgery. No jewelry (including any body piercings) or valuables the day of surgery, leave them at home. Please take a shower or bath the night before, or the morning of, surgery with an antibacterial soap. Wear comfortable, loose fitting clothing. - Jewelry must be removed prior to entering the operating room. Rings and piercings that are not removed may be cut off. - The hospital will not accept responsibility for valuables. - Please leave all valuables, including medications, at home the day of surgery. If you are going home after surgery, a licensed cement mixer driver must drive you home. - NO public transportation without another adult. - We recommend that an adult stay with you for 24 hours following discharge. - We also recommend that you do not drive, make important decision, drink alcoholic beverages, or take any drugs that were not prescribed by your health care provider for at least 24 hours after your discharge time. Follow any additional instructions given to you from your surgeon. If you or anyone in your household have experienced Covid symptoms in the past week, please notify your surgeon or the nurse liaison at the phone number below for possible testing. Telephone instructions given to __PT'S SPOUSE (JJ) and asked if any additional questions and then verbalized understanding. Patient advised to call surgeon office or pre surgery nurse liaison [phone] if any additional questions.
[2022-07-04 09:03] VITALS: BMI 16.0
--- NOTE | 2022-07-05 13:03 | P.PNAN_ITS ---
Anes - Initial Pre Proc Eval Procedure: Operation Date: 07/06/22 14:15 Proposed Procedures p Cystoscopy, Right Retrograde Pyelogram, Right Ureteroscopy, Right Stent Placement - Eldon Madden MD Date/Time: 07/05/22 13:03 Surgeon: Eldon Madden MD Pre Op Diagnosis: right hydronephrosis Patient Data Age: 67 Gender: F Height: 1.55 m Weight: 38.63 kg Allergies Allergy/AdvReac Type Severity Reaction Status Date / Time No Known Allergies Allergy Unknown Verified 07/06/22 12:31 Home Medications Medication Instructions Recorded Confirmed Type atorvastatin 10 mg tablet 10 mg HS 10/04/20 07/06/22 History lacosamide 200 mg tablet (Vimpat) 200 mg QA 10/04/20 07/06/22 History levothyroxine 25 mcg tablet 25 mcg QAM 10/04/20 07/06/22 History zonisamide 100 mg capsule 400 mg BID 10/04/20 07/06/22 History Align 1 tab-cap QAM 04/28/21 07/06/22 History Caltrate 600 600 mg BID 04/28/21 07/06/22 History Colace 100 mg BID 04/28/21 07/06/22 History Vitamin B12 1 tab-cap DAILY 04/28/21 07/06/22 History lacosamide 100 mg tablet (Vimpat) 300 mg PO HS 07/04/22 07/06/22 History omeprazole 20 mg tablet,delayed 20 mg PO QAM 07/04/22 07/06/22 History release perampanel 8 mg tablet (Fycompa) 8 mg PO HS 07/04/22 07/06/22 History Patient hx anesthesia problems: none Family hx anesthesia problems: none Results Review: All pre-operative results and documents have been reviewed as part of the pre- operative evaluation. FOR[facility]LY [facility] Past Medical History Medical History Acid reflux Brain aneurysm CVA (cerebral vascular accident) Dementia Depression Hyperlipidemia Hypothyroidism Seizure Smoker Surgical History Surgical History History of adenoidectomy Hx of tonsillectomy Family History Family History Father Patient's father is in good health Sibling Patient's brother is in good health Other Family history of heart disease in male family member before age 55 Social History Social History Smoking packs per day: 0.5 Smoking cigarettes per day: 10.0 Years smoked: 45 Smoking pack-years: 22.50 Smoking status: Current every day smoker Second hand tobacco smoke exposure: No Alcohol intake: never Substance use: never Living arrangements: with family Gender identity (if verbalized by the patient): Female Spiritual care concerns: No Anes - Eval Final PreProcedure Day of Procedure 07/05/22 13:03 Patient weight: cachectic Heart: regular rate and rhythm Lungs: clear to auscultation and normal air movement Airway: Mallampati scale class II Neurological: alert and oriented Last oral intake: >/= 8 hours ASA classification: III Emergent: no Anesthetic plan: proceed Anesthesia type and monitoring: general LMA Results Review: All pre-operative results and documents have been reviewed as part of the pre- operative evaluation. Informed Consent: The patient's anesthetic plan and its attendant risks and benefits were discussed with the patient/family/POA. Questions were solicited and answers provided to the satisfaction of the patient/family/POA.
[2022-07-06] VITALS (7 sets, daily range): BP systolic 131–157; BP diastolic 67–87; PULSE 57–69; RESP 14–20; TEMP 36.6–37.1; O2SAT 95–100
--- NOTE | ~2022-07-06 | XR_ITS ---
EXAMINATION: XR retrograde pyelo w/stent RT DATE: 07/06/2022 14:53 INDICATION: Hydronephrosis for bilateral retrograde pyelograms TECHNIQUE: 4 fluoroscopic images of the abdomen and pelvis were obtained during procedure performed pavel Madden. Radiologist was not present for the imaging or procedure. The amount of fluoroscopy arianna e used during this procedure was 1.4 minutes. COMPARISON: KUB dated 05/17/2022 FINDINGS: Again seen is a likely ventriculoperitoneal shunt which projects across the left side of the abdomen with distal tip in the left hemipelvis. Large amount of colonic stool. Retrograde contrast injection into both ureters was at this level demonstrates the no hydronephrosis. Final images demonstrate plac ement of a right internal ureteral stent with loops formed in the right renal pelvis and in the bladd er. IMPRESSION: 1. No hydronephrosis. Placement of a right internal ureteral stent in expected position. Reviewed, dictated and finalized at location A.
--- NOTE | 2022-07-06 06:28 | WPDHPUPDATE1 ---
History and Physical Update Update Date/Time: 07/06/22 06:28 History and Physical has been reviewed, including an updated exam of the patient. There are NO changes in the patient's condition. Risks, benefits, and alternatives have been discussed and questions answered. Patient agrees to proceed with procedure.
[2022-07-06] MEDS: LACTATED RINGERS 1,000 ML 30 ML IV CONT (12:50)
--- NOTE | 2022-07-06 15:14 | W.PM.PROC2 ---
Procedure Note - Detailed Date of Procedure 07/06/22 Pre-op Diagnosis Right hydronephrosis Post-op Diagnosis Same Procedure Performed Cystoscopy, bilateral retrograde pyelography, right ureteroscopy and right ureteral stent placement Surgeon Eldon Madden MD Description of Procedure patient is brought to the op suite she has prepped draped in routine sterile fashion while in dorsal lithotomy position after the uneventful induction of a general LMA anesthetic. Cystoscopy is undertaken with a 19 F rigid cystoscope. Urine was collected for cytology. Eight F bulb-tipped catheter used to obtain a right retrograde pyelogram which is perfectly normal by my review. I opted to do a retrograde on the left side for comparison sake and again the 2 seemed to be symmetric and without filling defects points of obstruction or other identifiable pathology. I did place a 0.035 in glidewire to right renal pelvis and did right digital ureteroscopy after dilating the ureter with an 8 F 10 F dilator. The entire collecting system, renal pelvis and ureter were carefully inspected and again found to be without mucosal defects filling defects stones or other abnormalities. I replaced the wire and placed a 4.8 F variable length stent with proximal coil in the renal pelvis and distal coil in the bladder. I plan to remove the stent check a BMP in 1-2 weeks. Packing Yes Pathology None sent Complications No immediate complications Condition Stable
[2022-07-06] MEDS: oxyCODONE HCL (*CRX) 2.5 MG TAB IR PO (15:49)
== END 2022-07-06 16:40 | disposition home or self-care (01) ==
PROVIDERS: PCP Family Medicine; Visit Provider Urology
PROC: (CPT 52352; principal; 2022-07-06 14:15)
DX: N13.30 Unspecified hydronephrosis (principal); E78.5 Hyperlipidemia, unspecified; E03.9 Hypothyroidism, unspecified; K21.9 Gastro-esophageal reflux disease without esophagitis; F17.210 Nicotine dependence, cigarettes, uncomplicated
CPT/HCPCS: 52332; 74420; 88108; A9270; C1758; C1769; C1887; C2617; J1100; J2250; J2405; J2704; J3010; J7120; Q9966

== ENCOUNTER → 2022-07-27 15:00 | Outpatient (CLI) | payer MEDICARE, OTHER, SELFPAY ==
--- NOTE | ~2022-07-27 | MM_ITS ---
EXAMINATION: MM screening [facility] BI w russ HISTORY: Screening TECHNIQUE: Craniocaudal and mediolateral oblique 3-D tomosynthesis images were obtained and synthetic 2-D images were generated. CAD analysis was submitted and interpreted. COMPARISON: Comparison to multiple prior studies sequentially, with oldest reviewed study dated 12/2015. BREAST PARENCHYMAL COMPOSITION: There are scattered areas of fibroglandular density. FINDINGS: There is no evidence of suspicious mass, calcification, or architectural distortion to sugg est malignancy in either breast. There has been no suspicious interval change. IMPRESSION: 1. No mammographic evidence of malignancy. 2. Recommend routine screening mammography in one year. BI-RADS Category 1: Negative Reviewed, dictated and finalized at location A.
== END ==
PROVIDERS: PCP Nurse Practitioner Obstetrics & Gynecology; Visit Provider Nurse Practitioner Obstetrics & Gynecology
DX: Z12.31 Encounter for screening mammogram for malignant neoplasm of breast (principal)
CPT/HCPCS: 77063; 77067

== ENCOUNTER → 2022-08-29 08:16 | Outpatient (CLI) | payer MEDICARE, OTHER, SELFPAY ==
--- NOTE | ~2022-08-29 | CT_ITS ---
EXAMINATION:CT diagnostic chest wo con DATE: 08/29/2022 08:44 INDICATION: Right chest wall pain. Shortness of breath. Abnormal chest radiograph. TECHNIQUE: Computed tomography (CT) of the chest was performed without intravenous contrast. Automate d exposure control and iterative reconstruction technique were employed. The dose-length product (DLP ) was 129.98 mGy-cm. COMPARISON: CT abdomen and pelvis 10/04/2020 FINDINGS: There is mild emphysema. There is mild atelectasis bilaterally. There is a 3 mm nodule in l eft upper lobe, likely benign. No pleural effusion. There is bronchiectasis in right middle lobe. Angel Luis cified right lung nodules and calcified right hilar and mediastinal lymph nodes are consistent with o ld granulomatous disease. There is a faint 11 mm groundglass opacity in right upper lobe, likely nori gn. No pleural effusion. The heart size is normal. There are coronary artery calcifications. No peric ardial effusion. There is a 16 mm hypodense mass in left adrenal gland, consistent with an adenoma. T here is mild thoracic spondylosis. There are old healed bilateral rib fractures. IMPRESSION: 1. Mild emphysema. 2. Bronchiectasis in right middle lobe. Reviewed, dictated and finalized at location A. MINER OPERATOR
== END ==
PROVIDERS: PCP Family Medicine
DX: J43.9 Emphysema, unspecified (principal); J47.9 Bronchiectasis, uncomplicated; R07.89 Other chest pain; R06.02 Shortness of breath; R93.89 Abnormal findings on diagnostic imaging of other specified body structures
CPT/HCPCS: 71250

== ENCOUNTER → 2023-10-15 10:14 | Outpatient (CLI) | payer MEDICARE, OTHER, SELFPAY ==
--- NOTE | ~2023-10-15 | MM_ITS ---
EXAMINATION: MM screening [facility] BI w russ HISTORY: Screening mammogram TECHNIQUE: Craniocaudal and mediolateral oblique 3-D tomosynthesis images were obtained and synthetic 2-D images were generated. CAD analysis was submitted and interpreted. COMPARISON: 07/27/2022, 06/16/2021, 04/13/2020 BREAST PARENCHYMAL COMPOSITION: There are scattered areas of fibroglandular density. FINDINGS: A stable mass of the upper outer quadrant of the left breast is considered benign given the lack of interval change. No suspicious mass, calcification, or architectural distortion are identifi ed in either breast to suggest malignancy. There has been no suspicious interval change. IMPRESSION: 1. No mammographic evidence of malignancy. 2. Recommend routine screening mammography in one year. BI-RADS Category 2: Benign finding(s). Reviewed, dictated and finalized at location A. INFORMATICS
== END ==
PROVIDERS: PCP Nurse Practitioner Obstetrics & Gynecology; Visit Provider Nurse Practitioner Obstetrics & Gynecology
DX: Z12.31 Encounter for screening mammogram for malignant neoplasm of breast (principal)
CPT/HCPCS: 77063; 77067

== ENCOUNTER → 2023-10-15 10:41 | Outpatient (CLI) | payer MEDICARE, OTHER, SELFPAY ==
--- NOTE | ~2023-10-15 | CT_ITS ---
CT Scan of the Chest without Contrast: Clinical Indication: Lung cancer screening, personal history of nicotine dependence Technique: Contiguous sections were acquired throughout the chest without intravenous contrast. Dose reduction technique was used on this scan by utilizing automated exposure control and iterative recon struction technique. The dose-length product (DLP) was 35.02 mGy-cm. COMPARISON: 08/29/2022 Findings: There is no evidence of any significant mediastinal, hilar or axillary lymphadenopathy. Calcified med iastinal lymph nodes are present. Coronary artery atherosclerotic calcifications are present. There is no evidence of pleural or pericardial effusion. There is an extremely vague groundglass opacity right upper lobe measuring up to approximately 1.5 cm in extent (axial image 36). There is linear scarring with calcified granuloma at the right middle lo be, unchanged. Images through the upper abdomen reveal no abnormalities. Impression: Lung RADS 2: Benign appearance. 12 month follow-up screening CT advised. Reviewed, dictated and finalized at [facility]. BODY SHOP MANAGER Impression: Lung RADS 2: Benign appearance. 12 month follow-up screening CT advised.
== END ==
PROVIDERS: PCP Family Medicine; Visit Provider Family Medicine
DX: Z12.2 Encounter for screening for malignant neoplasm of respiratory organs (principal); F17.210 Nicotine dependence, cigarettes, uncomplicated
CPT/HCPCS: 71271

== ENCOUNTER 2024-04-24 16:34 | Emergency (ER) | payer MEDICARE, OTHER, SELFPAY ==
[2024-04-24 16:45] VITALS: BP 125/62; PULSE 64; RESP 18; TEMP 36.4; O2SAT 98
--- NOTE | 2024-04-24 16:46 | ED.SKABFB ---
HPI - Skin/Abscess/Foreign Bdy General Chief complaint: Skin/Abscess/Foreign Body Stated complaint: Dog Scratch and Ankle Swelling Time Seen by Provider: 04/24/24 16:46 Source: patient, family, RN notes reviewed and old records reviewed Mode of arrival: ambulatory Limitations: no limitations History of Present Illness HPI narrative: she [facility] to [facility] accompanied by her . Reportedly, a couple stalk scratched her left lower leg 4 days ago, they noted that she had redness and swelling near the site today. They have been keeping the wound dressed and clean, but despite their efforts, and the area is becoming worse instead of better. There is associated erythema, scant drainage. Denies any fever, chills, sweats. Related Data Home Medications Medication Instructions Recorded Confirmed atorvastatin 10 mg tablet 10 mg HS 10/04/20 04/24/24 lacosamide 200 mg tablet (Vimpat) 200 mg PO QAM 10/04/20 04/24/24 levothyroxine 25 mcg tablet 25 mcg PO QAM 10/04/20 04/24/24 Align 1 tab-cap PO QAM 04/28/21 04/24/24 Caltrate 600 600 mg BID 04/28/21 04/24/24 Colace 100 mg PO BID 04/28/21 04/24/24 Vitamin B12 1 tab-cap PO DAILY 04/28/21 04/24/24 omeprazole 20 mg tablet,delayed 20 mg PO QAM 07/04/22 04/24/24 release perampanel 8 mg tablet (Fycompa) 8 mg PO HS 07/04/22 04/24/24 Allergies Allergy/AdvReac Type Severity Reaction Status Date / Time No Known Allergies Allergy Unknown Verified 04/24/24 16:51 Review of Systems Review of Systems: All systems reviewed & are unremarkable except as noted in HPI and below Constitutional: Constitutional: Reports no additional constitutional complaints ENT: Reports system reviewed and no additional complaints, except as documented Cardiovascular: Cardiovascular: Reports no additional cardiovascular complaints Respiratory: Respiratory: Reports no additional respiratory complaints Gastrointestinal: Gastrointestinal: Reports no additional gastrointestinal complaints Integumentary/Breasts: Skin/Breast: Reports system reviewed and no additional complaints, except as docu and Reports as per HPI PMFSH Past Medical History Medical History Acid reflux Brain aneurysm CVA (cerebral vascular accident) Dementia Depression Hyperlipidemia Hypothyroidism Nephrolithiasis Seizure Smoker Surgical History Surgical History History of adenoidectomy Hx of tonsillectomy Family History Family History Father Patient's father is in good health Sibling Patient's brother is in good health Other Family history of heart disease in male family member before age 55 Social History Social History Smoking packs per day: 0.5 Smoking cigarettes per day: 10.0 Years smoked: 45 Smoking pack-years: 22.50 Smoking status: Current every day smoker Second hand tobacco smoke exposure: Yes Alcohol intake: never Substance use: never Do You Feel Safe in your Home?: Yes Lack of Transportation: No Lack of Food: Never True Current Housing: I Have Housing Concerned About Future Housing: No Difficulty Paying Gas/Electric Bills: No Difficulty Paying for Meds: No Currently Unemployed: No Education: Trade/Vocational Certificate Living arrangements: with family Gender identity (if verbalized by the patient): Female Spiritual care concerns: No Comments At the time of my signature, I reviewed and agree with the nursing past medical, surgical, social, and family history. There is no relevant family history pertinent to the patient complaint. Exam Const: General: cooperative, no acute distress, alert and awake Orientation/consciousness: oriented to person, oriented to place and oriented to time HENMT: Head: normal to inspection Resp: Effort & Inspection: normal respiratory effort and able to speak
[2024-04-24 16:51] VITALS: BP 125/62; PULSE 64; RESP 18; TEMP 36.4; O2SAT 98
== END 2024-04-24 17:00 | disposition home or self-care (01) ==
PROVIDERS: Emergency Provider Nurse Practitioner Family; PCP Family Medicine
DX: L03.116 Cellulitis of left lower limb (principal); F17.210 Nicotine dependence, cigarettes, uncomplicated; K21.9 Gastro-esophageal reflux disease without esophagitis; F03.90 Unspecified dementia, unspecified severity, without behavioral disturbance, psychotic disturbance, mood disturbance, and anxiety; G40.909 Epilepsy, unspecified, not intractable, without status epilepticus; E78.5 Hyperlipidemia, unspecified; E03.9 Hypothyroidism, unspecified; Z86.73 Personal history of transient ischemic attack (TIA), and cerebral infarction without residual deficits
CPT/HCPCS: 99213; G0463

== ENCOUNTER 2024-10-16 09:48 | Outpatient (CLI) | payer MEDICARE, OTHER, SELFPAY ==
--- NOTE | ~2024-10-16 | CT_ITS ---
EXAMINATION:CT lung screening DATE: 10/16/2024 10:06 INDICATION: Nicotine dependence. Current smoker with 20 pack year history. TECHNIQUE: Computed tomography (CT) of the chest was performed without intravenous contrast. Automate d exposure control and iterative reconstruction technique were employed. The dose-length product (DLP ) was 33.09 mGy-cm. COMPARISON: Chest CT 10/15/2023 FINDINGS: Calcified right lung nodules and calcified right hilar and mediastinal lymph nodes are cons istent with old granulomatous disease. There is mild atelectasis bilaterally. There is mild bronchiec tasis in right middle lobe and lingula. There is mild emphysema. There is a 10 mm part-solid nodule i n right lung upper lobe with new 3 mm solid component. No pleural effusion. Partially visualized is a left-sided ventriculoperitoneal shunt. The heart size is normal. There are coronary artery calcifica tions. No pericardial effusion. There is mild thoracic spondylosis. There are old healed left rib fra ctures. IMPRESSION: 1. Lung RADS category 4A: Suspicious. Noncontrast low-dose chest CT is recommended in 3 months. Reviewed, dictated and finalized at location A. PROGRAMMATIC TV IMPRESSION: 1. Lung RADS category 4A: Suspicious. Noncontrast low-dose chest CT is recommen ded in 3 months.
== END 2024-10-16 09:49 | disposition home or self-care (01) ==
LOC: MICIMG 09:49
PROVIDERS: PCP Family Medicine; Visit Provider Family Medicine
DX: Z12.2 Encounter for screening for malignant neoplasm of respiratory organs (principal); Z87.891 Personal history of nicotine dependence
CPT/HCPCS: 71271

== ENCOUNTER 2024-12-16 10:48 | Outpatient (CLI) | payer MEDICARE, OTHER, SELFPAY ==
--- NOTE | ~2024-12-16 | MM_ITS ---
EXAMINATION: MM screening james BI w russ HISTORY: Screening mammogram TECHNIQUE: Craniocaudal and mediolateral oblique 3-D tomosynthesis images were obtained and synthetic 2-D images were generated. CAD analysis was submitted and interpreted. COMPARISON: 10/15/2023, 07/27/2022, 06/16/2021 BREAST PARENCHYMAL COMPOSITION:Dense: The breasts are heterogeneously dense, which may obscure small masses. FINDINGS: No suspicious mass, calcification, or architectural distortion are identified in either adan ast to suggest malignancy. There has been no suspicious interval change. IMPRESSION: No mammographic evidence of malignancy. Recommend routine screening mammography in one year. BI-RADS Category 1: Negative Reviewed, dictated and finalized at location .
== END 2024-12-16 10:49 | disposition home or self-care (01) ==
LOC: MICIMG 10:50
PROVIDERS: PCP Family Medicine; Visit Provider Obstetrics & Gynecology
DX: Z12.31 Encounter for screening mammogram for malignant neoplasm of breast (principal)
CPT/HCPCS: 77063; 77067